=== PATIENT | female | born 1940 | race African-American/Black ===

== ENCOUNTER 2021-08-08 07:07 | Emergency (ER) | payer MEDICAID ==
[~2021-08-08] VITALS: Ht 165.1 cm; Wt 82.0 kg
[~2021-08-08 07:07] MED LIST: ACET-2708 PO; ACET650T37 PO; ALD2525 PO; ASPI-1406 PO; ATOR20TA65 PO; CALC-3 PO; CALC-4 PO; CARV6.2548 PO; CHOL100044 PO; FURO-151 PO; FURO40TA5 PO; GABA-532 PO; GUAI600T26 PO; INSU100V3 SUBCUT; LEVVL SUBCUT; LOSA100T32 PO; LOSA50TA3 PO; METF-414 PO; METF-874 PO; PHEN473S12 PO; POTA20TA82 PO; SPIR25TA6 PO; [UNRECOGNIZED DRUG - OTHER] PO
[2021-08-08 08:24] LABS: BASOPHILS % 0.7 % (0.0-2.0); EOSINOPHILS % 0.3 % (0.0-5.0); HEMOGLOBIN. 14.2 g/dL (12.0-16.0); LYMPHOCYTES % 12.2 % (20.0-50.0); MEAN CORPUSCULAR HEMOGLOBIN 29.2 pg (28.0-32.0); MEAN CORPUSCULAR VOLUME 88.5 fL (81.0-99.0); MEAN PLATELET VOLUME 8.4 fl (7.4-10.4); NEUTROPHILS % 82.8 % (40.0-76.0); PLATELET 311 x1000/uL (130-400); RED BLOOD CELL COUNT 4.86 mill/uL (4.2-5.4); RED CELL DISTRIBUTION WIDTH 15.2 % (11.6-14.6)
[2021-08-08 08:27] LABS: CHLORIDE 102 mEq/L (98-107)
[2021-08-08] MEDS ORDERED: ONDANSETRON HCL 4MG/2ML INJ IV STA (08:35)
[2021-08-08] MEDS ORDERED: SODIUM CHLORIDE 0.9% 1,000 ML IV ONE (08:45)
[2021-08-08 12:00] LABS: CLARITY URINE CLEAR (CLEAR); COLOR URINE DARK YELLOW (YELLOW); KETONES URINE TRACE (NEGATIVE); LEUKOCYTE ESTERASE URINE 1+ (NEGATIVE); NITRITE URINE NEGATIVE (NEGATIVE); OCCULT BLOOD URINE NEGATIVE (NEGATIVE); PH URINE 5.5 (4.5-8.0); PROTEIN URINE 1+ (NEGATIVE); SPECIFIC GRAVITY URINE 1.024 (1.005-1.030); UROBILINOGEN URINE 0.2 E.U./dL (0.2-1.0)
[2021-08-08 15:58] VITALS: BP 145/79
== END 2021-08-08 16:25 | disposition home or self-care (01) ==
LOC: ER 07:10
DX: R53.1 Weakness (principal); R11.2 Nausea with vomiting, unspecified; R19.7 Diarrhea, unspecified; I11.0 Hypertensive heart disease with heart failure; I50.9 Heart failure, unspecified; E11.9 Type 2 diabetes mellitus without complications; E78.00 Pure hypercholesterolemia, unspecified; Z79.899 Other long term (current) drug therapy
CPT/HCPCS: 36415; 71045; 80053; 81003; 84484; 85025; 93005; 96361; 96374; 99291; J2405; J7030

== ENCOUNTER 2022-04-14 19:21 | Inpatient (IN) | payer MEDICAID ==
[~2022-04-14] VITALS: Ht 162.6 cm; Wt 80.4 kg
[~2022-04-14 19:21] MED LIST changes: +ACET-3163 PO; -ACET650T37 PO; +POTA-204 PO; -POTA20TA82 PO
[2022-04-14] MEDS ORDERED: LORAZEPAM 1MG TABLET PO ONE (23:00)
[2022-04-14] MEDS ORDERED: SODIUM CHLORIDE 0.9% 1,000 ML IV ONE (23:45)
[2022-04-15] MEDS ORDERED: LORAZEPAM 2MG/ML CPJ IV ONE
[2022-04-15 00:11] LABS: BASOPHILS % 0.5 % (0.0-2.0); EOSINOPHILS % 0.1 % (0.0-5.0); HEMATOCRIT. 42.4 % (36.0-48.0); HEMOGLOBIN. 14.2 g/dL (12.0-16.0); MEAN CORPUSCULAR HEMOGLOBIN 29.4 pg (28.0-32.0); MEAN CORPUSCULAR VOLUME 87.7 fL (81.0-99.0); MEAN PLATELET VOLUME 8.5 fl (7.4-10.4); MONOCYTES % 7.2 % (2.0-8.0); NEUTROPHILS % 64.2 % (40.0-76.0); PLATELET 202 x1000/uL (130-400); RED BLOOD CELL COUNT 4.83 mill/uL (4.2-5.4); RED CELL DISTRIBUTION WIDTH 14.3 % (11.6-14.6)
[2022-04-15 00:16] LABS: CHLORIDE 101 mEq/L (98-107)
[2022-04-15 00:19] LABS: CLARITY URINE CLEAR (CLEAR); COLOR URINE YELLOW (YELLOW); KETONES URINE TRACE (NEGATIVE); LEUKOCYTE ESTERASE URINE 2+ (NEGATIVE); NITRITE URINE NEGATIVE (NEGATIVE); OCCULT BLOOD URINE NEGATIVE (NEGATIVE); PH URINE 5.5 (4.5-8.0); PROTEIN URINE 1+ (NEGATIVE); SPECIFIC GRAVITY URINE 1.024 (1.005-1.030)
[2022-04-15] MEDS ORDERED: CEFTRIAXONE 1 G PREMIX 50 ML IV NR (03:30)
[2022-04-15] MEDS ORDERED: NITROGLYCERIN 0.4MG TABLET SL SL PRN (07:30)
[2022-04-15] MEDS ORDERED: KETOROLAC 15MG/ML VIAL IV PRN (07:30)
[2022-04-15] MEDS ORDERED: DOCUSATE SODIUM 100MG CAPSULE PO PRN (07:30)
[2022-04-15] MEDS ORDERED: ONDANSETRON HCL 4MG/2ML INJ IV PRN (07:30)
[2022-04-15] MEDS ORDERED: MAGNESIUM/ALUMINUM HYDROXIDE/SIMETHICONE 30ML UDC PO PRN (07:30)
[2022-04-15] MEDS ORDERED: DEXTROSE 50% WATER 50ML SYRINGE IV PRN (07:30)
[2022-04-15] MEDS ORDERED: GUAIFENESIN 200MG/10ML SUGAR FREE UDC PO PRN (07:30)
[2022-04-15] MEDS ORDERED: LEVOFLOXACIN 500MG PREMIX 100 ML IV SCH ×2 (07:30→18:00)
[2022-04-15] MEDS ORDERED: ACETAMINOPHEN 325MG TABLET PO PRN (07:30)
[2022-04-15] MEDS ORDERED: IPRATROPIUM/ALBUTEROL 0.5-3(2.5)MG/3ML NEB NEB PRN (07:30)
[2022-04-15] MEDS ORDERED: CEFTRIAXONE 1 G PREMIX 50 ML IV SCH (09:00)
[2022-04-15 10:13] LABS: T4 FREE 0.89 ng/dL (0.76-1.46)
[2022-04-15 10:52] LABS: VITAMIN B12 SERUM 742 pg/mL (211-911)
[2022-04-15] MEDS: BLOOD SUGAR DIAGNOSTIC STRIP TEST SCH ×3 (11:40→21:15)
[2022-04-15 12:00] VITALS: BP 143/74
[2022-04-15] MEDS: INSULIN LISPRO 100 UNITS/ML SUBCUT SCH ×4 (12:10→21:15)
[2022-04-15] MEDS ORDERED: EMPA25TA PO (13:09)
[2022-04-15] MEDS ORDERED: INSU100I28 SQ (13:09)
[2022-04-15] MEDS ORDERED: EXEN2AUT SQ (13:09)
[2022-04-15] MEDS ORDERED: ASPI-1160 PO (13:09)
[2022-04-15] MEDS ORDERED: AMLO2.5T2 PO (13:09)
[2022-04-15] MEDS ORDERED: DIGO125T80 PO (13:09)
[2022-04-15 16:00] VITALS: BP 116/79
[2022-04-15] MEDS: ASPIRIN 325MG EC TABLET PO SCH (16:41)
[2022-04-15] MEDS: ASCORBIC ACID 500 MG TABLET PO SCH ×2 (16:41→21:14)
[2022-04-15] MEDS: ZINC SULFATE 220 MG ( 50 ) CAPSULE PO SCH (16:41)
[2022-04-15] MEDS: FAMOTIDINE 20MG TABLET PO SCH ×2 (16:41→21:14)
[2022-04-15] MEDS: LOSARTAN POTASSIUM 50 MG TABLET PO SCH (16:41)
[2022-04-15] MEDS: ENOXAPARIN 40MG/0.4ML SYR SUBCUT SCH (16:42)
[2022-04-15] MEDS: INSULIN GLARGINE 100 UNITS/ML SUBCUT SCH (16:43)
[2022-04-15 17:26] VITALS: BP 127/70
[2022-04-15 18:55] LABS: CREATINE KINASE MB FRACTION 7.3 ng/mL (0.5-3.6)
[2022-04-15 20:00] VITALS: BP 146/75
[2022-04-15] MEDS ORDERED: ZOLPIDEM TARTRATE 5MG TABLET PO PRN (21:00)
[2022-04-16] VITALS: BP 113/50
[2022-04-16] MEDS ORDERED: CEFTRIAXONE 1,000 MG in DEXTROSE 5% WATER 50 ML IV SCH (01:00)
[2022-04-16] MEDS: CEFTRIAXONE 1,000 MG in DEXTROSE 5% WATER 50 ML IV SCH (02:09)
[2022-04-16 04:00] VITALS: BP 114/65
[2022-04-16] MEDS: BLOOD SUGAR DIAGNOSTIC STRIP TEST SCH ×4 (05:31→21:44)
[2022-04-16] MEDS: INSULIN LISPRO 100 UNITS/ML SUBCUT SCH ×4 (05:31→21:44)
[2022-04-16 08:00] VITALS: BP 145/66
[2022-04-16 08:17] LABS: BASOPHILS % 0.3 % (0.0-2.0); EOSINOPHILS % 0.8 % (0.0-5.0); HEMATOCRIT. 37.9 % (36.0-48.0); HEMOGLOBIN. 12.4 g/dL (12.0-16.0); LYMPHOCYTES % 33.1 % (20.0-50.0); MEAN CORPUSCULAR HEMOGLOBIN 28.9 pg (28.0-32.0); MEAN CORPUSCULAR VOLUME 88.3 fL (81.0-99.0); MONOCYTES % 5.7 % (2.0-8.0); NEUTROPHILS % 60.1 % (40.0-76.0); PLATELET 158 x1000/uL (130-400); RED CELL DISTRIBUTION WIDTH 14.5 % (11.6-14.6)
[2022-04-16 08:54] LABS: CHLORIDE 105 mEq/L (98-107)
[2022-04-16 09:01] LABS: PHOSPHORUS 2.9 mg/dL (2.5-4.9)
[2022-04-16] MEDS: ASPIRIN 325MG EC TABLET PO SCH (09:23)
[2022-04-16] MEDS: ENOXAPARIN 40MG/0.4ML SYR SUBCUT SCH (09:23)
[2022-04-16] MEDS: ASCORBIC ACID 500 MG TABLET PO SCH ×2 (09:23→21:44)
[2022-04-16] MEDS: FAMOTIDINE 20MG TABLET PO SCH ×2 (09:23→21:44)
[2022-04-16] MEDS: LOSARTAN POTASSIUM 50 MG TABLET PO SCH (09:23)
[2022-04-16] MEDS: ZINC SULFATE 220 MG ( 50 ) CAPSULE PO SCH (09:23)
[2022-04-16] MEDS: INSULIN GLARGINE 100 UNITS/ML SUBCUT SCH (09:27)
[2022-04-16] MEDS: LEVOFLOXACIN 250MG PREMIX 50 ML IV SCH (11:57)
[2022-04-16 12:00] VITALS: BP 118/60
[2022-04-16 16:00] VITALS: BP 124/61
[2022-04-16 20:00] VITALS: BP 139/62
[2022-04-17] VITALS: BP 114/52
[2022-04-17 04:00] VITALS: BP 134/57
[2022-04-17] MEDS: CEFTRIAXONE 1,000 MG in DEXTROSE 5% WATER 50 ML IV SCH (04:05)
[2022-04-17] MEDS: ACETAMINOPHEN 325MG TABLET PO PRN ×2 (04:16→22:30)
[2022-04-17] MEDS: BLOOD SUGAR DIAGNOSTIC STRIP TEST SCH ×4 (06:38→21:00)
[2022-04-17] MEDS: INSULIN LISPRO 100 UNITS/ML SUBCUT SCH ×4 (06:38→21:00)
[2022-04-17 08:00] VITALS: BP 120/53
[2022-04-17] MEDS: ASCORBIC ACID 500 MG TABLET PO SCH ×2 (09:16→22:24)
[2022-04-17] MEDS: ENOXAPARIN 30MG/0.3ML SYR SUBCUT SCH ×2 (09:16→22:25)
[2022-04-17] MEDS: LOSARTAN POTASSIUM 50 MG TABLET PO SCH (09:16)
[2022-04-17] MEDS: ASPIRIN 325MG EC TABLET PO SCH (09:16)
[2022-04-17] MEDS: FAMOTIDINE 20MG TABLET PO SCH ×2 (09:16→22:24)
[2022-04-17] MEDS: ZINC SULFATE 220 MG ( 50 ) CAPSULE PO SCH (09:56)
[2022-04-17] MEDS: INSULIN GLARGINE 100 UNITS/ML SUBCUT SCH (10:47)
[2022-04-17] MEDS: LEVOFLOXACIN 250MG PREMIX 50 ML IV SCH (10:47)
[2022-04-17 12:00] VITALS: BP 147/75
[2022-04-17 16:00] VITALS: BP 120/60
[2022-04-17 20:00] VITALS: BP 156/74
[2022-04-18] VITALS (7 sets, daily range): BP systolic 136–167; BP diastolic 64–79
[2022-04-18] MEDS: CEFTRIAXONE 1,000 MG in DEXTROSE 5% WATER 50 ML IV SCH (03:55)
[2022-04-18] MEDS: BLOOD SUGAR DIAGNOSTIC STRIP TEST SCH ×4 (07:00→20:58)
[2022-04-18] MEDS: INSULIN LISPRO 100 UNITS/ML SUBCUT SCH ×4 (07:00→20:50)
[2022-04-18] MEDS: ASCORBIC ACID 500 MG TABLET PO SCH ×2 (09:12→20:50)
[2022-04-18] MEDS: ENOXAPARIN 30MG/0.3ML SYR SUBCUT SCH ×2 (09:12→20:50)
[2022-04-18] MEDS: ZINC SULFATE 220 MG ( 50 ) CAPSULE PO SCH (09:12)
[2022-04-18] MEDS: FAMOTIDINE 20MG TABLET PO SCH ×2 (09:12→20:50)
[2022-04-18] MEDS: LOSARTAN POTASSIUM 50 MG TABLET PO SCH (09:12)
[2022-04-18] MEDS: ASPIRIN 325MG EC TABLET PO SCH (09:12)
[2022-04-18] MEDS: INSULIN GLARGINE 100 UNITS/ML SUBCUT SCH (09:18)
[2022-04-18] MEDS: LEVOFLOXACIN 250MG PREMIX 50 ML IV SCH (11:23)
[2022-04-18] MEDS: ACETAMINOPHEN 325MG TABLET PO PRN (21:00)
[2022-04-18] MEDS: CLONIDINE 0.1MG TABLET PO PRN (23:49)
[2022-04-19] VITALS: BP 169/86
[2022-04-19] MEDS: CEFTRIAXONE 1,000 MG in DEXTROSE 5% WATER 50 ML IV SCH (03:43)
[2022-04-19 04:00] VITALS: BP 181/90
[2022-04-19] MEDS: CLONIDINE 0.1MG TABLET PO PRN (05:18)
[2022-04-19] MEDS: BLOOD SUGAR DIAGNOSTIC STRIP TEST SCH ×2 (06:47→12:12)
[2022-04-19] MEDS: INSULIN LISPRO 100 UNITS/ML SUBCUT SCH ×2 (06:47→13:33)
[2022-04-19 08:00] VITALS: BP 130/60
[2022-04-19] MEDS: ENOXAPARIN 30MG/0.3ML SYR SUBCUT SCH (09:15)
[2022-04-19] MEDS: ASPIRIN 325MG EC TABLET PO SCH (09:16)
[2022-04-19] MEDS: FAMOTIDINE 20MG TABLET PO SCH (09:16)
[2022-04-19] MEDS: LOSARTAN POTASSIUM 50 MG TABLET PO SCH (09:16)
[2022-04-19] MEDS: ZINC SULFATE 220 MG ( 50 ) CAPSULE PO SCH (09:16)
[2022-04-19] MEDS: ASCORBIC ACID 500 MG TABLET PO SCH (09:16)
[2022-04-19] MEDS: INSULIN GLARGINE 100 UNITS/ML SUBCUT SCH (09:20)
[2022-04-19 11:07] VITALS: BP 140/71
[2022-04-19 12:00] VITALS: BP 140/71
[2022-04-20] MEDS ORDERED: ENOXAPARIN 40MG/0.4ML SYR SUBCUT SCH (09:00)
== END 2022-04-19 16:20 | disposition home or self-care (01) | DRG 720 ==
LOC: ER 19:21 → 7EST 04-15 03:46 → EDBEDREQ 04-15 03:49 → EDBEDREQTM 04-15 03:49
PROVIDERS: ADMIT Internal Medicine; ATTEND Internal Medicine
DX: A41.9 Sepsis, unspecified organism (principal); G92.8 Other toxic encephalopathy; K76.82 Hepatic encephalopathy; I50.9 Heart failure, unspecified; I11.0 Hypertensive heart disease with heart failure; N39.0 Urinary tract infection, site not specified; E11.65 Type 2 diabetes mellitus with hyperglycemia; E78.00 Pure hypercholesterolemia, unspecified; J44.9 Chronic obstructive pulmonary disease, unspecified; Z79.4 Long term (current) use of insulin; Z95.0 Presence of cardiac pacemaker
CPT/HCPCS: 36415; 71045; 80053; 80061; 81003; 82550; 82553; 82607; 82746; 82962; 83036; 83540; 83550; 83605; 83735; 83880; 84100; 84145; 84439; 84443; 84484; 85025; 93005; 93306; 93970; 99285; J0696; J1650; J1815; J1956; J2060; J7030; J7060

== ENCOUNTER 2022-09-13 11:48 | Inpatient (IN) | payer MEDICAID ==
[~2022-09-13] VITALS: Ht 157.5 cm; Wt 80.0 kg
[~2022-09-13 11:48] MED LIST changes: -ACET-3163 PO; -ALD2525 PO; +AMLO2.5T2 PO; -CALC-3 PO; -CHOL100044 PO; +DIGO125T80 PO; +EMPA25TA PO; +EXEN2AUT SQ; -FURO40TA5 PO; -GUAI600T26 PO; +INSU100I28 SQ; -METF-414 PO; -PHEN473S12 PO
[2022-09-13 12:47] LABS: BASOPHILS % 0.4 % (0.0-2.0); EOSINOPHILS % 0.3 % (0.0-5.0); HEMATOCRIT. 43.8 % (36.0-48.0); HEMOGLOBIN. 13.7 g/dL (12.0-16.0); LYMPHOCYTES % 25.2 % (20.0-50.0); MEAN CORPUSCULAR HEMOGLOBIN 27.9 pg (28.0-32.0); MEAN CORPUSCULAR VOLUME 89.7 fL (81.0-99.0); MEAN PLATELET VOLUME 8.2 fl (7.4-10.4); MONOCYTES % 5.6 % (2.0-8.0); NEUTROPHILS % 68.5 % (40.0-76.0); PLATELET 231 x1000/uL (130-400); RED BLOOD CELL COUNT 4.89 mill/uL (4.2-5.4); RED CELL DISTRIBUTION WIDTH 15.1 % (11.6-14.6)
[2022-09-13 12:59] LABS: CHLORIDE 108 mEq/L (98-107)
[2022-09-13 13:10] LABS: ETHANOL BLOOD < 10 mg/dL
[2022-09-13 19:45] VITALS: BP 160/81
[2022-09-13 20:00] VITALS: BP 160/81
[2022-09-13] MEDS ORDERED: ONDANSETRON HCL 4MG/2ML INJ IV PRN (21:00)
[2022-09-13] MEDS ORDERED: CLONIDINE 0.1MG TABLET PO PRN (21:00)
[2022-09-13] MEDS ORDERED: ACETAMINOPHEN 325MG TABLET PO PRN ×2 (21:00)
[2022-09-13] MEDS ORDERED: DOCUSATE SODIUM 100MG CAPSULE PO PRN (21:00)
[2022-09-13] MEDS ORDERED: DEXTROSE 50% WATER 50ML SYRINGE IV PRN (21:00)
[2022-09-13] MEDS ORDERED: IPRATROPIUM/ALBUTEROL 0.5-3(2.5)MG/3ML NEB HHN PRN (21:00)
[2022-09-13] MEDS: BLOOD SUGAR DIAGNOSTIC STRIP TEST SCH (21:34)
[2022-09-13] MEDS: INSULIN LISPRO 100 UNITS/ML SUBCUT SCH (21:38)
[2022-09-13] MEDS: LACTULOSE 20G/30ML UDC PO SCH (21:38)
[2022-09-13] MEDS: HYDROCODONE/ACETAMINOPHEN 5/325MG TABLET PO PRN (21:45)
[2022-09-13] MEDS ORDERED: LACTULOSE ENEMA 1,000ML BOTTLE PR NR (22:00)
[2022-09-14 00:34] VITALS: BP 140/60
[2022-09-14 00:48] LABS: CLARITY URINE CLEAR (CLEAR); COLOR URINE YELLOW (YELLOW); KETONES URINE NEGATIVE (NEGATIVE); LEUKOCYTE ESTERASE URINE NEGATIVE (NEGATIVE); NITRITE URINE NEGATIVE (NEGATIVE); OCCULT BLOOD URINE NEGATIVE (NEGATIVE); PH URINE 6.5 (4.5-8.0); PROTEIN URINE NEGATIVE (NEGATIVE); SPECIFIC GRAVITY URINE 1.036 (1.005-1.030); UROBILINOGEN URINE 0.2 E.U./dL (0.2-1.0)
[2022-09-14 01:18] LABS: *AMPHETAMINES SCREEN URINE NEGATIVE (NEGATIVE); *BARBITURATES SCREEN URINE NEGATIVE (NEGATIVE); *BENZODIAZEPINES SCREEN URINE NEGATIVE (NEGATIVE); *COCAINE SCREEN URINE NEGATIVE (NEGATIVE); CANNABINOID URINE SCREEN NEGATIVE (NEGATIVE); METHADONE URINE SCREEN NEGATIVE (NEGATIVE); OPIATES URINE SCREEN NEGATIVE (NEGATIVE); PHENCYCLIDINE URINE SCREEN NEGATIVE (NEGATIVE)
[2022-09-14] MEDS ORDERED: MORPHINE SULFATE 2 MG/ML CPJ (NOT FOR IM USE) IV PRN (02:30)
[2022-09-14 04:51] VITALS: BP 138/66
[2022-09-14] MEDS: LACTULOSE 20G/30ML UDC PO SCH ×3 (05:06→22:00)
[2022-09-14] MEDS: BLOOD SUGAR DIAGNOSTIC STRIP TEST SCH ×4 (06:41→21:00)
[2022-09-14 07:25] LABS: BASOPHILS % 0.6 % (0.0-2.0); HEMATOCRIT. 40.1 % (36.0-48.0); HEMOGLOBIN. 13.3 g/dL (12.0-16.0); LYMPHOCYTES % 31.2 % (20.0-50.0); MEAN CORPUSCULAR HEMOGLOBIN 28.7 pg (28.0-32.0); MEAN CORPUSCULAR VOLUME 86.8 fL (81.0-99.0); MEAN PLATELET VOLUME 8.6 fl (7.4-10.4); NEUTROPHILS % 61.2 % (40.0-76.0); PLATELET 252 x1000/uL (130-400); RED BLOOD CELL COUNT 4.62 mill/uL (4.2-5.4); RED CELL DISTRIBUTION WIDTH 14.5 % (11.6-14.6)
[2022-09-14 08:00] VITALS: BP 140/62
[2022-09-14] MEDS: INSULIN LISPRO 100 UNITS/ML SUBCUT SCH ×4 (08:10→22:51)
[2022-09-14] MEDS: HYDROCODONE/ACETAMINOPHEN 5/325MG TABLET PO PRN ×2 (09:34→21:24)
[2022-09-14 12:00] VITALS: BP 120/57
[2022-09-14 12:17] LABS: HEPATITIS B SURFACE ANTIGEN NEGATIVE
[2022-09-14] MEDS: FUROSEMIDE 40MG/4ML VIAL IVP SCH (12:45)
[2022-09-14] MEDS: GABAPENTIN 300MG CAPSULE PO SCH ×2 (13:41→18:05)
[2022-09-14 16:00] VITALS: BP 125/62
[2022-09-14] MEDS: CARVEDILOL 12.5MG TABLET PO SCH (18:05)
[2022-09-14] MEDS: METFORMIN HCL 500MG TABLET PO SCH (18:05)
[2022-09-14 20:29] VITALS: BP 121/62
[2022-09-14] MEDS: ATORVASTATIN CALCIUM 20MG TABLET PO SCH (21:24)
[2022-09-14] MEDS: INSULIN GLARGINE 100 UNITS/ML SUBCUT SCH (22:47)
[2022-09-15] VITALS: BP 143/71
[2022-09-15 04:00] VITALS: BP 141/55
[2022-09-15] MEDS: LACTULOSE 20G/30ML UDC PO SCH ×3 (07:10→22:00)
[2022-09-15] MEDS: CALCIUM CARBONATE/VITAMIN D3 500MG TABLET PO SCH (07:10)
[2022-09-15] MEDS: BLOOD SUGAR DIAGNOSTIC STRIP TEST SCH ×4 (07:40→21:00)
[2022-09-15 08:00] VITALS: BP 145/65
[2022-09-15] MEDS: INSULIN LISPRO 100 UNITS/ML SUBCUT SCH ×4 (08:10→22:22)
[2022-09-15] MEDS: METFORMIN HCL 500MG TABLET PO SCH ×2 (08:36→17:25)
[2022-09-15] MEDS: ASPIRIN 81MG EC TABLET PO SCH (08:36)
[2022-09-15] MEDS: AMLODIPINE 2.5MG TABLET PO SCH (08:37)
[2022-09-15] MEDS: CARVEDILOL 12.5MG TABLET PO SCH ×2 (08:37→17:26)
[2022-09-15] MEDS: GABAPENTIN 300MG CAPSULE PO SCH ×3 (08:38→17:25)
[2022-09-15] MEDS: SPIRONOLACTONE 25MG TABLET PO SCH (08:38)
[2022-09-15] MEDS: INSULIN GLARGINE 100 UNITS/ML SUBCUT SCH ×2 (10:15→22:21)
[2022-09-15] MEDS: FUROSEMIDE 40MG/4ML VIAL IVP SCH (10:52)
[2022-09-15 11:24] LABS: BASOPHILS % 0.4 % (0.0-2.0); EOSINOPHILS % 1.3 % (0.0-5.0); HEMATOCRIT. 42.2 % (36.0-48.0); HEMOGLOBIN. 13.8 g/dL (12.0-16.0); LYMPHOCYTES % 43.6 % (20.0-50.0); MEAN CORPUSCULAR HEMOGLOBIN 29.1 pg (28.0-32.0); MEAN CORPUSCULAR VOLUME 88.6 fL (81.0-99.0); MEAN PLATELET VOLUME 8.4 fl (7.4-10.4); MONOCYTES % 8.3 % (2.0-8.0); NEUTROPHILS % 46.4 % (40.0-76.0); PLATELET 232 x1000/uL (130-400); RED BLOOD CELL COUNT 4.76 mill/uL (4.2-5.4); RED CELL DISTRIBUTION WIDTH 14.7 % (11.6-14.6)
[2022-09-15 11:54] LABS: CHLORIDE 103 mEq/L (98-107)
[2022-09-15 12:00] VITALS: BP 139/70
[2022-09-15 12:10] LABS: HDL CHOLESTEROL 59 mg/dL (40-59); LDL CHOLESTEROL 52 mg/dL (5-100)
[2022-09-15 16:00] VITALS: BP 134/66
[2022-09-15 20:00] VITALS: BP 140/79
[2022-09-15] MEDS: HYDROCODONE/ACETAMINOPHEN 5/325MG TABLET PO PRN (22:19)
[2022-09-15] MEDS: ATORVASTATIN CALCIUM 20MG TABLET PO SCH (22:20)
[2022-09-16] VITALS (7 sets, daily range): BP systolic 125–146; BP diastolic 62–79
[2022-09-16] MEDS: LACTULOSE 20G/30ML UDC PO SCH ×3 (07:11→21:23)
[2022-09-16] MEDS: CALCIUM CARBONATE/VITAMIN D3 500MG TABLET PO SCH (07:11)
[2022-09-16] MEDS: BLOOD SUGAR DIAGNOSTIC STRIP TEST SCH ×4 (07:40→21:02)
[2022-09-16] MEDS: INSULIN LISPRO 100 UNITS/ML SUBCUT SCH ×4 (08:10→21:25)
[2022-09-16] MEDS: SPIRONOLACTONE 25MG TABLET PO SCH (09:07)
[2022-09-16] MEDS: METFORMIN HCL 500MG TABLET PO SCH ×2 (09:07→17:35)
[2022-09-16] MEDS: GABAPENTIN 300MG CAPSULE PO SCH ×3 (09:07→17:34)
[2022-09-16] MEDS: ASPIRIN 81MG EC TABLET PO SCH (09:07)
[2022-09-16] MEDS: AMLODIPINE 2.5MG TABLET PO SCH (09:08)
[2022-09-16] MEDS: CARVEDILOL 12.5MG TABLET PO SCH ×2 (09:08→17:35)
[2022-09-16] MEDS: FUROSEMIDE 40MG/4ML VIAL IVP SCH (10:03)
[2022-09-16] MEDS: INSULIN GLARGINE 100 UNITS/ML SUBCUT SCH ×2 (10:14→21:24)
[2022-09-16] MEDS ORDERED: NALOXONE HCL 0.4MG/ML VIAL IV PRN (17:15)
[2022-09-16] MEDS: ATORVASTATIN CALCIUM 20MG TABLET PO SCH (21:23)
[2022-09-16] MEDS: HYDROCODONE/ACETAMINOPHEN 5/325MG TABLET PO PRN (21:23)
[2022-09-17] VITALS: BP 112/64
[2022-09-17 04:00] VITALS: BP 144/70
[2022-09-17] MEDS: LACTULOSE 20G/30ML UDC PO SCH (05:09)
[2022-09-17] MEDS: BLOOD SUGAR DIAGNOSTIC STRIP TEST SCH (06:48)
== END 2022-09-17 07:30 | disposition home or self-care (01) ==
LOC: ER 11:48 → 7WST 17:10 → EDBEDREQSVC 17:33 → EDBEDREQ 17:33 → EDBEDREQTM 17:33
PROVIDERS: ADMIT Family Medicine Adult Medicine; ATTEND Family Medicine Adult Medicine
DX: K76.82 Hepatic encephalopathy (principal); J96.00 Acute respiratory failure, unspecified whether with hypoxia or hypercapnia; I50.43 Acute on chronic combined systolic (congestive) and diastolic (congestive) heart failure; G93.41 Metabolic encephalopathy; E11.649 Type 2 diabetes mellitus with hypoglycemia without coma; E78.00 Pure hypercholesterolemia, unspecified; I25.10 Atherosclerotic heart disease of native coronary artery without angina pectoris; I11.0 Hypertensive heart disease with heart failure; E11.65 Type 2 diabetes mellitus with hyperglycemia; M47.812 Spondylosis without myelopathy or radiculopathy, cervical region; I27.20 Pulmonary hypertension, unspecified; I42.2 Other hypertrophic cardiomyopathy; M48.02 Spinal stenosis, cervical region; Z88.7 Allergy status to serum and vaccine; Z95.810 Presence of automatic (implantable) cardiac defibrillator; Z79.4 Long term (current) use of insulin
CPT/HCPCS: 36415; 71045; 76700; 80048; 80053; 80061; 80305; 80320; 81003; 82140; 82962; 83735; 83880; 84484; 85025; 86803; 87340; 93005; 93306; 99285; C1893; J1815; J1940; J2270; G0480